=== PATIENT | female | born 1990 | race Caucasian/White ===

== ENCOUNTER 2016-11-02 21:50 | Emergency (ER) | payer OTHER ==
[~2016-11-02 21:50] MED LIST: BIRTH CONTROL PO; MIRALAX17 GM PO; NORCO 5-325 TA1 EACH PO
--- NOTE | 2016-11-19 16:41 | ER ---
ADMIT: 11/02/2016 RM/LOC: ER [facility] MR#: [id number] [facility] [id number] [place], [place] [id number] IDALMIS HECTOR [address] [place] [address] Emergency Room Report SEX: F AGE: 26 : 1990 DATE: 11/02/2016 A 26-year-old female, playing softball when she slid into base jammed her ankle and rolled it, felt a pop, unable to bear weight, complaining of severe pain. See T-sheet for history and physical. X-ray revealed avulsion fracture and fracture of the ankle, diagnosed with the same. She was placed in posterior splint, given crutches. Instructed to follow up with Dr. Danielle, Orthopedic Surgery this week. Phil Huntley MD/ marisela JOB #: [id number] CC: Delvin Traylor MD, Attending Physician Theresa Lopez MD, Family Physician
== END 2016-11-02 23:25 | disposition home or self-care (01) ==
LOC: ER 21:50
PROC: 2W3QX1Z Immobilization of Right Lower Leg using Splint (ICD-10-PCS; principal; 2016-11-02)
DX: S82.891A Other fracture of right lower leg, initial encounter for closed fracture (principal); Z98.890 Other specified postprocedural states; Z90.89 Acquired absence of other organs; Z88.0 Allergy status to penicillin; Z88.2 Allergy status to sulfonamides; Z88.1 Allergy status to other antibiotic agents; Z88.8 Allergy status to other drugs, medicaments and biological substances; Z79.899 Other long term (current) drug therapy; W01.0XXA Fall on same level from slipping, tripping and stumbling without subsequent striking against object, initial encounter; Y92.830 Public park as the place of occurrence of the external cause